=== PATIENT | male | born 1970 | race Caucasian/White ===

== ENCOUNTER 2022-11-29 10:38 | Outpatient (CLI) | payer OTHER, SELFPAY ==
[2022-11-29 11:06] VITALS: BMI 21.9
[2022-11-29 11:11] VITALS: BP 109/67; PULSE 72; RESP 16; TEMP 36.1; O2SAT 97
[2022-11-29 11:15] LABS: Hematocrit 43.1 % (40.0-54.0); Hemoglobin 13.8 g/dL (14.0-18.0); Mean Corpuscular Hemoglobin 27.9 pg (27.0-31.0); Mean Corpuscular Volume 87.1 fL (78.0-102.0); Mean Platelet Volume 8.9 fl (8.7-11.0); Platelet Count Result 419 K/mm3 (150-420); Red Blood Count 4.95 M/mm3 (4.70-6.10)
[2022-11-29 11:24] LABS: White Blood Count 30.8 K/mm3 (4.8-10.8)
[2022-11-29 11:33] LABS: Band Neutrophils Percent 1 % (0-6); Basophils Percent Manual 0 % (0-1); Eosinophils Percent Manual 0 % (1-6); Lymphocytes Percent Manual 1 % (18-44); Monocytes Percent Manual 1 % (3-9); Neutrophils Absolute Manual 30.18 K/mm3 (1.3-6.7); Neutrophils Percent Manual 97 % (46-73); Platelet Estimate Adequate (Adequate); Total Cells Counted 100
[2022-11-29 11:34] LABS: Alanine Aminotransferase 14 U/L (16-63); Albumin Level 2.8 g/dL (3.4-5.0); Alkaline Phosphatase 108 U/L (46-116); Anion Gap 7 mmol/L (8-16); Aspartate Amino Transferase 10 U/L (15-37); Bilirubin,Total 0.3 mg/dL (0.00-1.00); Blood Urea Nitrogen 12 mg/dL (7-18); Calcium 9.3 mg/dL (8.5-10.1); Carbon Dioxide 29 mmol/L (21-32); Chloride 97 mmol/L (98-108); Estimated CRCL calculation 62 ml/min; Estimated Glomerular Filt Rate > 60; Glucose 237 mg/dL (70-99); Osmolality Calculated 283 mOsm/kg (285-295); Potassium 4.7 mmol/L (3.5-5.1); Sodium 133 mmol/L (136-145); Total Protein 8.1 g/dL (6.4-8.2)
[2022-11-29] MEDS: SODIUM CHLORIDE 0.9% IV 250 ML 10 ML IVPB (11:50)
[2022-11-29] MEDS: FAMOTIDINE 20 MG/ISO 50 ML 20 MG/50 ML BAG 100 MG IVPB (11:55)
[2022-11-29] MEDS: diphenhydrAMINE HCl INJ 50 MG/ML VIAL 25 MG IV PUSH (12:15)
[2022-11-29] MEDS: HEPARIN SODIUM LOCK FLUSH 500 UNITS/5 ML SYRINGE IV PUSH (14:30)
--- NOTE | 2022-11-29 14:36 | PC.NURSE ---
Patient here for chemo regimen weekly along with radiation.for Lung CA non small. Education given. Patient had few rounds of chemo last year. Labs reviewed. WBC elevated- Dr. Floyd notified and he ok'd to proceed with chemo today. IV Chemo regimen administered SEE DEC. Tolerated well. Will return 12/06/22 around 1030 or after radiation for week 2. Safe exit of hospital.
== END 2022-11-29 10:39 | disposition home or self-care (01) ==
LOC: CHSTREATRM 10:42
PROVIDERS: PCP Family Medicine; Visit Provider Internal Medicine Hematology & Oncology
DX: Z51.11 Encounter for antineoplastic chemotherapy (principal); C34.11 Malignant neoplasm of upper lobe, right bronchus or lung
CPT/HCPCS: 36415; 80053; 85025; 96367; 96375; 96413; 96417; J1100; J1200; J2405; J7050; J9045; J9267

== ENCOUNTER 2022-12-06 10:12 | Outpatient (CLI) | payer OTHER, SELFPAY ==
[2022-12-06] MEDS: FAMOTIDINE 20 MG/ISO 50 ML 20 MG/50 ML BAG 150 MG IVPB (10:17)
[2022-12-06 10:33] VITALS: BMI 22.0
[2022-12-06] MEDS: ALTEPLASE 2 MG VIAL (CATHFLO) IV PUSH (10:35)
[2022-12-06 10:41] VITALS: BP 118/64; PULSE 92; RESP 14; TEMP 35.9; O2SAT 96
[2022-12-06 11:44] LABS: Hematocrit 37.4 % (40.0-54.0); Hemoglobin 11.8 g/dL (14.0-18.0); Mean Corpuscular HGB Conc 31.6 g/dL (32.0-36.0); Mean Corpuscular Hemoglobin 27.6 pg (27.0-31.0); Mean Corpuscular Volume 87.6 fL (78.0-102.0); Mean Platelet Volume 9.3 fl (8.7-11.0); Platelet Count Result 317 K/mm3 (150-420); Red Blood Count 4.27 M/mm3 (4.70-6.10); Red Cell Distribution Width 13.3 % (11.6-14.4)
[2022-12-06 11:47] LABS: White Blood Count 20.5 K/mm3 (4.8-10.8)
[2022-12-06 11:53] LABS: Band Neutrophils Percent 1 % (0-6); Lymphocytes Absolute Manual 0.82 K/mm3 (1.1-4.5); Lymphocytes Percent Manual 4 % (18-44); Monocytes Percent Manual 1 % (3-9); Neutrophils Absolute Manual 19.47 K/mm3 (1.3-6.7); Neutrophils Percent Manual 94 % (46-73); Platelet Estimate Adequate (Adequate); Total Cells Counted 100
[2022-12-06 11:59] LABS: Albumin Level 2.6 g/dL (3.4-5.0); Alkaline Phosphatase 95 U/L (46-116); Anion Gap 7 mmol/L (8-16); Aspartate Amino Transferase 11 U/L (15-37); Bilirubin,Total 0.3 mg/dL (0.00-1.00); Blood Urea Nitrogen 13 mg/dL (7-18); Calcium 8.5 mg/dL (8.5-10.1); Carbon Dioxide 27 mmol/L (21-32); Chloride 100 mmol/L (98-108); Estimated CRCL calculation 84 ml/min; Estimated Glomerular Filt Rate > 60; Glucose 252 mg/dL (70-99); Osmolality Calculated 287 mOsm/kg (285-295); Potassium 4.4 mmol/L (3.5-5.1); Sodium 134 mmol/L (136-145); Total Protein 6.9 g/dL (6.4-8.2)
[2022-12-06 12:08] LABS: Alanine Aminotransferase 12 U/L (16-63)
[2022-12-06] MEDS: diphenhydrAMINE HCl INJ 50 MG/ML VIAL 25 MG IV PUSH (12:17)
[2022-12-06] MEDS: SODIUM CHLORIDE 0.9% IV 250 ML 30 ML (12:18)
[2022-12-06] MEDS: HEPARIN SODIUM LOCK FLUSH 500 UNITS/5 ML SYRINGE IV PUSH (14:29)
[2022-12-06 14:36] VITALS: BP 120/69; PULSE 88; RESP 14; TEMP 36.1; O2SAT 96
--- NOTE | 2022-12-06 14:45 | PC.NURSE ---
Patient here for cycle 2 chemo regimen. Education given. Labs reviewed/ok'd by Dr. Floyd. All concerns answered. Chemo regimen administered. SEE MAR. Tolerated well. Will return 12/13/22 for cycle 3. Safe exit of hospital. Rissa, sister, updated and picked him up.
== END 2022-12-06 10:13 | disposition home or self-care (01) ==
PROVIDERS: PCP Family Medicine; Visit Provider Internal Medicine Hematology & Oncology
DX: Z51.11 Encounter for antineoplastic chemotherapy (principal); C34.11 Malignant neoplasm of upper lobe, right bronchus or lung; T82.898A Other specified complication of vascular prosthetic devices, implants and grafts, initial encounter
CPT/HCPCS: 36415; 36593; 80053; 85025; 96367; 96375; 96413; 96417; J1100; J1200; J2405; J2997; J7050; J9045; J9267

== ENCOUNTER 2022-12-20 10:22 | Outpatient (CLI) | payer OTHER, SELFPAY ==
--- NOTE | 2022-12-20 10:40 | PC.NURSE ---
Pt to room 202 amb per self. A&Ox3. Has no questions or complaints. Oriented to room and plan of care for chemo treatment. Call oliver in reach. Reminded to call with needs.
[2022-12-20 10:41] LABS: Basophils Absolute Auto 0.04 K/mm3 (0.00-0.10); Basophils Percent Auto 0.3 % (0.0-1.0); Eosinophils Percent Auto 1.3 % (1.0-6.0); Hematocrit 43.6 % (40.0-54.0); Hemoglobin 13.8 g/dL (14.0-18.0); Immature Granulocyte Absolute 0.31 K/mm3 (0.00-0.00); Lymphocytes Absolute Auto 0.36 K/mm3 (1.10-4.50); Lymphocytes Percent Auto 2.3 % (18.0-42.0); Mean Corpuscular HGB Conc 31.7 g/dL (32.0-36.0); Mean Corpuscular Hemoglobin 28.3 pg (27.0-31.0); Mean Corpuscular Volume 89.5 fL (78.0-102.0); Mean Platelet Volume 8.5 fl (8.7-11.0); Monocytes Absolute Auto 0.61 K/mm3 (0.10-0.90); Monocytes Percent Auto 3.9 % (2.0-11.0); Neutrophils Absolute Auto 14.1 K/mm3 (1.7-7.2); Neutrophils Percent Auto 90.2 % (50.0-70.0); Platelet Count Result 241 K/mm3 (150-420); Red Blood Count 4.87 M/mm3 (4.70-6.10); Red Cell Distribution Width 15.1 % (11.6-14.4); White Blood Count 15.6 K/mm3 (4.8-10.8)
[2022-12-20 11:06] LABS: Alanine Aminotransferase 17 U/L (16-63); Alkaline Phosphatase 106 U/L (46-116); Anion Gap 5 mmol/L (8-16); Aspartate Amino Transferase 11 U/L (15-37); Bilirubin,Total 0.4 mg/dL (0.00-1.00); Blood Urea Nitrogen 8 mg/dL (7-18); Calcium 9.2 mg/dL (8.5-10.1); Carbon Dioxide 32 mmol/L (21-32); Chloride 99 mmol/L (98-108); Estimated Glomerular Filt Rate > 60; Glucose 178 mg/dL (70-99); Osmolality Calculated 284 mOsm/kg (285-295); Potassium 4.2 mmol/L (3.5-5.1); Sodium 136 mmol/L (136-145)
[2022-12-20] MEDS: FAMOTIDINE 20 MG/ISO 50 ML 20 MG/50 ML BAG 150 MG IVPB (11:25)
[2022-12-20] MEDS: diphenhydrAMINE HCl INJ 50 MG/ML VIAL 25 MG IV PUSH (11:25)
[2022-12-20] MEDS: SODIUM CHLORIDE 0.9% IV 250 ML 10 ML IVPB (11:25)
[2022-12-20 11:33] VITALS: BP 107/71; PULSE 71; RESP 20; TEMP 35.7; O2SAT 99
--- NOTE | 2022-12-20 12:15 | PC.NURSE ---
Pt ate 100% of lunch. Has no complaints. Medications infusing without difficulty. Reminded to call with needs.
--- NOTE | 2022-12-20 14:20 | PC.NURSE ---
Patients sister notified of patient condition and transfer to ED. Asks to be kept informed. Sister's name and phone number given to FRONT END ARCHITECT.
--- NOTE | 2022-12-20 14:30 | PC.NURSE ---
Kirsten and Dr. Floyd's office informed of patient's condition and transfer to the ER.
--- NOTE | 2022-12-20 14:35 | PC.NURSE ---
Addendum entered by Leticia Trevino RN 12/20/22 14:40: Previous note time for 1400. Original Note: Pt c/o SOB. RR 20, SaO2 94% on RA. Chemo infusion stopped. Port flushed with 10ml NS without difficulty. Pt requests to walk to BR. To BR with assist, gait steady. Back to chair. Continues to c/o sob. SaO2 85% on ra. O2 applied at 3l per NC. BP 93/54, HR 109. Pt face red, pt moaning. Request to lay down, assisted to bed. Requesting to lay flat. PT A&Ox3. Emt/Paramedic informed patient of need to go to the ER. Patient agrees to be taken to ER per bed. ER notified patient will be coming down. Pt to ER per bed with assist of 2, portable O2 on at 3L per NC. Pt taken to room 7. Nursing report given to Tara Yanez RN and Dr. Alex.
== END 2022-12-20 10:23 | disposition home or self-care (01) ==
LOC: CHSLAB 10:26
PROVIDERS: PCP Family Medicine; Visit Provider Internal Medicine Hematology & Oncology
DX: Z51.11 Encounter for antineoplastic chemotherapy (principal); C34.11 Malignant neoplasm of upper lobe, right bronchus or lung
CPT/HCPCS: 36415; 80053; 85025; 96360; 96361; 96365; 96367; 96375; 96413; 96417; J1100; J1200; J2405; J7050; J9045; J9267

== ENCOUNTER 2022-12-20 14:16 | Emergency (ER) | payer OTHER, SELFPAY ==
[2022-12-20] VITALS (53 sets, daily range): BP systolic 82–129; BP diastolic 50–90; PULSE 69–107; RESP 12–22; TEMP 36.2; O2SAT 88–100
--- NOTE | ~2022-12-20 | CT_ITS ---
EXAMINATION: CTA chest PE abdomen pel DATE: 12/20/2022 18:07 INDICATION: Left lower quadrant abdominal pain. Chest pain. Shortness of breath. Nausea. TECHNIQUE: Computed tomography angiography (CTA) of the chest was performed with 100 mL Omnipaque-350 intravenous contrast timed to evaluate the pulmonary arteries. Coronal maximum intensity projection 3D-reconstructions were created by the technologist. Computed tomography (CT) of the abdomen and pelv is was performed with intravenous contrast. Automated exposure control and iterative reconstruction t echnique were employed. The dose-length product was 652.59 mGy-cm. COMPARISON: None. FINDINGS: CTA chest: The contrast opacification is poor due to injector difficulties. There is a 6.6 x 5.2 cm m ass in right lung upper lobe at the hilum. A calcified right lung nodule and calcified right hilar ly mph nodes are consistent with old granulomatous disease. There is mild atelectasis bilaterally. There is mild emphysema. No pleural effusion. The heart size is normal. There is subendocardial fat involv ing the anterior wall and apex of left ventricle, consistent with old infarct. There are coronary art chelly calcifications. No pericardial effusion. There is a left internal jugular port with tip at superi or cavoatrial junction. The pulmonary arteries are poorly opacified. There is mild thoracic spondylos is. CT abdomen and pelvis: There is poor contrast opacification of the abdomen. A 6 mm low-attenuation le casper in the liver is too small to characterize, but likely a cyst. The spleen demonstrates peripheral areas of low attenuation, consistent with infarcts. The gallbladder and pancreas are normal. There a re embolization coils near the stomach. The adrenal glands are normal. There is a 1 mm stone in right kidney. There is a 10 mm hemorrhagic cyst in left kidney. The bladder is distended. The prostate is mildly enlarged. There is an anastomosis in the sigmoid colon. There is diverticulosis of the colon w ithout evidence of diverticulitis. There are no dilated loops of bowel. The appendix is not visualize d. There is a left-sided ventral hernia containing fat. There is a supraumbilical ventral hernia cont aining fat. There are no pathologically enlarged lymph nodes. There is no free intraperitoneal fluid. There is mild lumbar spondylosis. IMPRESSION: 1. Poor contrast opacification, which is nondiagnostic for evaluation for pulmonary emboli. 2. Right lung upper lobe mass, consistent with primary bronchogenic carcinoma. 3. Mild emphysema. 4. 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 6. Left-sided ventral hernia containing fat. Supra-umbilical ventral hernia containing fat. Reviewed, dictated and finalized at location A. A FARMER IMPRESSION: 1. Poor contrast opacification, which is nondiagnostic for evaluation for pulmo nary emboli. 2. Right lung upper lobe mass, consistent with primary bronchogenic carcinoma. 3. Mild emphysema. 4. 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 6. Left-sided ventral hernia containing fat. Supra-umbilical ventral hernia con taining fat.
--- NOTE | ~2022-12-20 | XR_ITS ---
XR chest 1V portable 12/20/2022 14:39 Indication: Dyspnea Procedure: AP portable chest Comparison: No prior studies for comparison. Findings: Portacatheter tip in the SVC. Prominent right paratracheal soft tissue. Recommend correlati on with contrast-enhanced CT to exclude lymph node enlargement or vascular abnormality. There are nod ular densities left lower thorax, possibly calcified granulomas. Impression: 1: Prominent right paratracheal soft tissue and left basilar nodular densities. Follow-up CT chest wi th contrast recommended. Reviewed, dictated and finalized at location L. PER Impression: 1: Prominent right paratracheal soft tissue and left basilar nodular densities. Follow-up CT chest with contrast recommended.
--- NOTE | 2022-12-20 14:19 | ECG_ITS ---
Measurements Intervals [place] Rate: 87 P: 66 MI: 197 QRS: -8 QRSD: 90 T: 73 QT: 372 QTc: 450 Interpretive Statements SINUS RHYTHM POSSIBLE RIGHT ATRIAL ENLARGEMENT [0.25mV P-WAVE] LOW QRS VOLTAGE IN PRECORDIAL LEADS [QRS DEFLECTION < 1.0 mV IN CHEST LEADS] POsSIBLE SEPTAL MYOCARDIAL INFARCTION , PROBABLY OLD [35 ms Q WAVE IN V1/V2] ABNORMAL ECG NO PREVIOUS ECG AVAILABLE FOR COMPARISON Electronically Signed On 12-20-2022 15:13:20 [employer]DROMETER FINISHER by German Smallwood M.D.
[2022-12-20] MEDS: IPRATROPIUM 0.5 MG/ALBUTEROL SULFATE 2.5 MG AMPUL.NEB 3 ML (14:25)
[2022-12-20] MEDS: MAGNESIUM SULF 2 GM/WATER 50ML 2 GM/50 ML BAG IVPB (14:35)
[2022-12-20] MEDS: methylPREDNISolone SOD SUCC 125 MG VIAL IV PUSH (14:36)
[2022-12-20] MEDS: SODIUM CHLORIDE 0.9% IV 1,000 ML 999 ML IV CONT ×3 (14:42→16:52)
[2022-12-20] MEDS: KETOROLAC 30 MG/ML VIAL (*BKC) IV PUSH (14:44)
[2022-12-20] MEDS: ONDANSETRON INJ 4 MG/2 ML VIAL IV PUSH (14:44)
[2022-12-20 14:52] LABS: Base Excess ABG -3.5 mmol/L (0-2); HCO3 ABG 21.4 mmol/L (23-29); Oxygen Content ABG 16.7 %vol (16.0-22.0); Oxygen Saturation ABG 95.4 % (95-97); Oxyhemoglobin 93.1 % (94-100); PCO2 ABG 38.3 mmHg (35-45); PO2 ABG 86.7 mmHg (80-90); Total Hemoglobin 12.7 g/dL (12.0-18.0); pH ABG 7.37 (7.35-7.45)
[2022-12-20 14:54] LABS: Basophils Absolute Auto 0.05 K/mm3 (0.00-0.10); Basophils Percent Auto 0.3 % (0.0-1.0); Device NASAL CANNULA; Eosinophils Absolute Auto 0.01 K/mm3 (0.02-0.50); Eosinophils Percent Auto 0.1 % (1.0-6.0); Hematocrit 37.3 % (40.0-54.0); Hemoglobin 11.8 g/dL (14.0-18.0); Immature Granulocyte Absolute 0.95 K/mm3 (0.00-0.00); Immature Granulocyte Percent A 4.9 % (0.0-0.0); Lymphocytes Absolute Auto 0.52 K/mm3 (1.10-4.50); Lymphocytes Percent Auto 2.7 % (18.0-42.0); Mean Corpuscular HGB Conc 31.6 g/dL (32.0-36.0); Mean Corpuscular Hemoglobin 27.9 pg (27.0-31.0); Mean Corpuscular Volume 88.2 fL (78.0-102.0); Mean Platelet Volume 8.7 fl (8.7-11.0); Modified Allen's Test Pass; Neutrophils Absolute Auto 17.7 K/mm3 (1.7-7.2); Platelet Count Result 259 K/mm3 (150-420); Red Blood Count 4.23 M/mm3 (4.70-6.10); Red Cell Distribution Width 14.6 % (11.6-14.4); Site Drawn RIGHT RADIAL; White Blood Count 19.4 K/mm3 (4.8-10.8)
[2022-12-20 15:22] LABS: Magnesium 3.4 mg/dL (1.8-2.4); NT Pro B Type Natriuretic Pept 129 pg/mL (0-125); Troponin I 34.7 ng/L (0.00-60.4)
[2022-12-20 15:40] LABS: Partial Thromboplastin Time 27.2 SEC (23.90-30.70); Prothrombin Time 11.3 Seconds (9.50-12.10)
[2022-12-20 16:11] LABS: Influenza A QL RT-PCR Negative (Negative); Influenza B QL RT-PCR Negative (Negative); RSV RNA, RT-PCR Negative (Negative); SARS-CoV-2 RNA PCR Negative (Negative)
[2022-12-20 16:22] LABS: Alanine Aminotransferase 16 U/L (16-63); Albumin Level 2.5 g/dL (3.4-5.0); Alkaline Phosphatase 93 U/L (46-116); Anion Gap 10 mmol/L (8-16); Aspartate Amino Transferase 14 U/L (15-37); Bilirubin,Total 0.7 mg/dL (0.00-1.00); Blood Urea Nitrogen 9 mg/dL (7-18); Calcium 8.6 mg/dL (8.5-10.1); Carbon Dioxide 23 mmol/L (21-32); Chloride 100 mmol/L (98-108); Estimated CRCL calculation 71 ml/min; Estimated Glomerular Filt Rate > 60; Glucose 276 mg/dL (70-99); Osmolality Calculated 284 mOsm/kg (285-295); Potassium 4.2 mmol/L (3.5-5.1); Sodium 133 mmol/L (136-145); Total Protein 6.5 g/dL (6.4-8.2)
[2022-12-20 17:06] LABS: D Dimer 3.67 mg/L (0.19-0.50)
--- NOTE | 2022-12-20 17:06 | PC.NURSE ---
elevated ddimer 3.67, erp is made aware.
[2022-12-20 17:53] LABS: Appearance Urine Clear (Clear); Bilirubin Urine Negative (Negative); Blood Urine Negative (Negative); Color Urine Light Yellow (Yellow); Glucose Urine UA 3+ (Negative); Ketones Urine Negative (Negative); Leukocyte Esterase Ur Negative LEU/UL (Negative); Nitrate Urine Negative (Negative); Protein Urine Negative (Negative); Urobilinogen Urine 0.2 mg/dL (0.2-1.0); pH Urine 6.5 (5.0-8.0)
[2022-12-20 18:41] LABS: Add Urine Microscopic? YES; RBC Urine 0-2 /hpf (0-2); Squamous Epithelial Cell Urine None seen /hpf (Few); WBC Urine 0-3 /hpf (0-3)
[2022-12-20 18:42] LABS: Bacteria Urine None seen /hpf
[2022-12-20 18:45] LABS: Lipase 39 U/L (16-77)
[2022-12-20] MEDS: MORPHINE SULFATE (*CRX) 2 MG/ML INJ IV PUSH ×2 (18:53→21:02)
--- NOTE | 2022-12-20 19:47 | ED.SOB ---
HPI - SOB/Dyspnea General Chief Complaint: Shortness of Breath/Dyspnea Stated Complaint: shortness of breath Time Seen by Provider: 12/20/22 14:19 Source: patient Mode of arrival: wheelchair Limitations: no limitations History of Present Illness HPI Narrative: this is a 52-year-old male that was receiving outpatient chemotherapy infusion and desatted and became short of breath with saturations 86% on room air and was brought to the emergency department from the infusion center. Patient was put on oxygen at the infusion center and did marginally better, but was also complaining of abdominal discomfort with no dysuria no hematuria no flank pain. Patient has a history of lung cancer and is receiving chemotherapy. Also has a history of COPD and is current smoker. Otherwise no chest pain no nausea vomiting no diarrhea constipation. Patient is afebrile with no cough or congestion MD elicited complaint: shortness of breath Pertinent past history: COPD and other ( History of lung cancer, also having abdominal pain) Onset (ago): hour(s) Severity: moderate Exacerbating factors: nothing Related Data Home Medications Medication Instructions Recorded Confirmed albuterol sulfate 90 mcg/actuation 2 puff inhalation QID PRN 11/29/22 12/20/22 aerosol inhaler Shortness Of Breath Or Wheezing amlodipine 10 mg tablet 10 mg PO DAILY 11/29/22 12/20/22 atorvastatin 20 mg tablet 20 mg PO DAILY 11/29/22 12/20/22 carvedilol 12.5 mg tablet 12.5 mg PO BID 11/29/22 12/20/22 cyclobenzaprine 5 mg tablet 5 mg PO TID PRN Muscle Spasm 11/29/22 12/20/22 famotidine 20 mg tablet 20 mg PO DAILY 11/29/22 12/20/22 ferrous sulfate 325 mg (65 mg 325 mg PO DAILY 11/29/22 12/20/22 iron) tablet folic acid 1 mg tablet 1 mg PO DAILY 11/29/22 12/20/22 ipratropium 0.5 mg-albuterol 3 mg 3 ml inhalation QID PRN Shortness 11/29/22 12/20/22 (2.5 mg base)/3 mL nebulization Of Breath Or Wheezing soln levetiracetam 500 mg tablet 500 mg PO BID 11/29/22 12/20/22 bywlvj-[id number] 1 cap PO TID 11/29/22 12/20/22 36,000-114,000-180,000 unit capsule,delay rel (Creon) magnesium oxide 400 mg (241.3 mg 400 mg PO DAILY 11/29/22 12/20/22 magnesium) tablet ondansetron 8 mg disintegrating 8 mg PO Q8H PRN Nausea And Vomiting 11/29/22 12/20/22 tablet pantoprazole 40 mg tablet,delayed 40 mg PO BID 11/29/22 12/20/22 release potassium chloride 20 mEq 20 meq PO DAILY 11/29/22 12/20/22 tablet,extended release prochlorperazine maleate 10 mg 10 mg PO Q8H PRN Nausea And 11/29/22 12/20/22 tablet Vomiting tiotropium bromide 18 mcg capsule 1 cap inhalation DAILY 11/29/22 12/20/22 with inhalation device (Spiriva with HandiHaler) trazodone 50 mg tablet 150 mg PO HS 11/29/22 12/20/22 umeclidinium 62.5 mcg/actuation 1 inh inhalation DAILY 11/29/22 12/20/22 blister powder for inhalation (Incruse Ellipta) vitamin B complex 1 tablet PO DAILY 11/29/22 12/20/22 acetaminophen 120 mg-codeine 12 15 ml PO AC 12/20/22 12/20/22 mg/5 mL oral solution aluminum-mag hydroxide-simethicone 15 ml PO AC 12/20/22 12/20/22 200 mg-200 mg-20 mg/5 mL oral susp (Antacid Regular Strength) dexamethasone 0.5 mg/5 mL oral See Rx Instructions .Route .COMPLEX 12/20/22 12/20/22 solution lidocaine HCl 2 % mucosal solution 15 ml PO AC 12/20/22 12/20/22 (Lidocaine Viscous) nystatin 100,000 unit/mL oral 15 ml PO AC 12/20/22 12/20/22 suspension Allergies Allergy/AdvReac Type Severity Reaction Status Date / Time No Known Allergies Allergy Verified 11/29/22 11:12 Review of Systems Review of Systems: All systems reviewed & are unremarkable except as noted in HPI and below PMFSH Past Medical History Medical History COPD (chronic obstructive pulmonary disease) Lung cancer Social History Social History Smoking status: Former smoker Exam Const: General: ill
[2022-12-20 20:03] LABS: Lactic Acid Reflex 2.5 mmol/L (0.4-2.0)
[2022-12-20 23:08] LABS: Reflex Lactic Acid Yes or No Add Lactic
[2022-12-20 23:40] LABS: Lactic Acid 0.9 mmol/L (0.4-2.0)
[2022-12-21] VITALS: BP 108/79; PULSE 73; O2SAT 97
[2022-12-21 00:01] VITALS: PULSE 69; O2SAT 96
[2022-12-21 00:15] VITALS: PULSE 70; O2SAT 99
[2022-12-21 00:30] VITALS: PULSE 67; O2SAT 99
--- NOTE | 2022-12-26 12:17 | PC.NURSE ---
FINAL BLOOD CULTURES X 2: NO GROWTH AFTER 5 DAYS. NO ACTION NEEDED.
== END 2022-12-21 01:30 | disposition short-term general hospital (02) ==
PROVIDERS: Emergency Provider Emergency Medicine; PCP Family Medicine
DX: R09.02 Hypoxemia (principal); C34.90 Malignant neoplasm of unspecified part of unspecified bronchus or lung; J44.9 Chronic obstructive pulmonary disease, unspecified; R10.9 Unspecified abdominal pain; F17.200 Nicotine dependence, unspecified, uncomplicated; Z79.899 Other long term (current) drug therapy; Z79.51 Long term (current) use of inhaled steroids; Z20.822 Contact with and (suspected) exposure to COVID-19
CPT/HCPCS: 36415; 36600; 71045; 71275; 74177; 80053; 81001; 82805; 83605; 83690; 83735; 83880; 84484; 85025; 85380; 85610; 85730; 87040; 87637; 93005; 94640; 96361; 96365; 96367; 96375; 96376; 99285; J1885; J2270; J2405; J2543; J2930; J3475; J7030; Q9967

== ENCOUNTER 2023-03-04 08:56 | Outpatient (CLI) | payer OTHER, SELFPAY ==
[2023-03-04 09:11] VITALS: BMI 22.1
[2023-03-04] MEDS: HEPARIN SODIUM LOCK FLUSH 500 UNITS/5 ML SYRINGE (09:14)
== END 2023-03-04 08:57 | disposition home or self-care (01) ==
LOC: CHSTREATRM 08:58
PROVIDERS: PCP Family Medicine; Visit Provider Internal Medicine Hematology & Oncology
DX: Z45.2 Encounter for adjustment and management of vascular access device (principal); C34.90 Malignant neoplasm of unspecified part of unspecified bronchus or lung
CPT/HCPCS: 96523